=== PATIENT | male | born 1975 | race Caucasian/White ===

== ENCOUNTER 2020-11-23 11:49 | Day surgery (SDC) | payer OTHER ==
[~2020-11-23] VITALS: Ht 175.3 cm; Wt 78.9 kg
[~2020-11-23 11:49] MED LIST: CEPH500 PO; LORA1 PO; PHENY100ER PO; SULTRIDS PO
--- NOTE | 2020-11-23 12:49 | NUR ---
11/23/20 1249 Merry Prescott CHARTING DONE BY VAHE REYES RN
--- NOTE | 2020-11-23 13:52 | NUR ---
11/23/[address] COMPLETED AURELIO BLOCK IN OR. PT TOW.
== END 2020-11-23 14:40 | disposition home or self-care (01) ==
LOC: ORSCSDS 11:49
PROVIDERS: Orthopaedic Surgery
PROC: 0JBK0ZZ Excision of Left Hand Subcutaneous Tissue and Fascia, Open Approach (ICD-10-PCS; principal; 2020-11-23 13:15)
DX: L72.0 Epidermal cyst (principal)
CPT/HCPCS: 88304; J0690; J2250; J2704; J3010; J7120